=== PATIENT | male | born 1945 | race Caucasian/White ===

== ENCOUNTER 2018-02-18 10:39 | Inpatient (IN) | payer OTHER ==
[2018-02-18 11:04] VITALS: BMI 27.1
--- NOTE | 2018-02-18 11:06 | HP ---
CIWA Score - CIWA Score Nausea/Vomitin-No Nausea/No Vomiting Muscle Tremors: 3 Anxiety: 3 Agitation: 2 Paroxysmal Sweats: 3 Orientation: 3-Disoriented Date>2 days Tacttile Disturbances: 0-None Auditory Disturbances: 0-None Visual Disturbances: 0-None Headache: 0-None Present CIWA-Ar Total Score: 14 Admission ROS BHS - HPI Chief Complaint: "I need help to cut drinking" Allergies/Adverse Reactions: Allergies Allergy/AdvReac Type Severity Reaction Status Date / Time No Known Allergies Allergy Verified 02/18/18 11:02 History of Present Illness: 73 y/o male presents requesting alcohol detox. This is pt's first visit here, states he had detox about 6 months ago @ [facility]. Pt is a MMTP at [facility] where he says he takes 45mg daily, he got his dose for today (presents empty bottles for his sat and sun doses). Explained that he will be medicated tomorrow after verification has been done, pt verbalized understanding. Pt was @ [facility] yesterday where he was seen for abdominal pain and alcohol -related incidence. Pt has a hx of Hep C , ?HTN (says he was given a small pill before, does not remember the name - explained to pt that we will monitor Bp and treat accordingly), Admits to being depressed (not diagnosed). Denies past or current SI/HI. Exam Limitations: No Limitations - Ebola screening Have you traveled outside of the country in the last 21 days: No Have you had contact with anyone from an Ebola affected area: No Have you been sick,other than usual withdrawal symptoms: No Do you have a fever: No - Review of Systems Constitutional: Loss of Appetite, Night Sweats, Unintentional Wgt. Loss EENT: reports: Blurred Vision, Dental Problems (missing teeth, has upper dentures) Respiratory: reports: No Symptoms reported Cardiac: reports: No Symptoms Reported GI: reports: Other (LUQ pain, was told he has fatty liver and air pockets) : reports: No Symptoms Reported Musculoskeletal: reports: Joint Pain (elbows, knees) Integumentary: reports: Flushing Neuro: reports: Numbness, Paresthesia Endocrine: reports: No Symptoms Reported Hematology: reports: No Symptoms Reported Psychiatric: reports: Mood/Affect Appropiate, Depressed (Not on meds), Disorientated (to time) Other Systems: Reviewed and Negative Patient History - Patient Medical History Hx Anemia: No Hx Asthma: No Hx Chronic Obstructive Pulmonary Disease (COPD): No Hx Cancer: No Hx Cardiac Disorders: No Hx Congestive Heart Failure: No Hx Hypertension: Yes (Not on Meds. ?Borderline ) Hx Hypercholesterolemia: No Hx Pacemaker: No HX Cerebrovascular Accident: No Hx Seizures: No Hx Dementia: No Hx Diabetes: No Hx Gastrointestinal Disorders: No Hx Liver Disease: Yes (Hep C) Hx Genitourinary Disorders: No Hx Sexually Transmitted Disorders: No Hx Renal Disease (ESRD): No Hx Thyroid Disease: No Hx Human Immunodeficiency Virus (HIV): No (Last tested Mar 2017. Wants test now) Hx Hepatitis C: Yes (Not treated) Hx Depression: No Hx Suicide Attempt: No Hx Bipolar Disorder: No Hx Schizophrenia: No - Patient Surgical History Past Surgical History: Yes Hx Abdominal Surgery: Yes (Inguinal and Abdominal - unsure what dates) Hx Appendectomy: No Hx Cholecystectomy: No Hx Genitourinary Surgery: No Hx Section: No Hx Orthopedic Surgery: No Hx Hysterectomy: No Anesthesia Reaction: No - PPD History Implanted On Prior R Admission?: No PPD to be Administered?: Yes - Smoking Cessation Smoking history: Former smoker Have you smoked in the past 12 months: No Initiated information on smoking cessation: Yes 'Breaking Loose' booklet given: 02/18/18 - Substance & Tx. History Hx Alcohol Use: Yes Hx Substance Use Treatment: Yes - Substances Abused Alcohol Route: Oral Frequency: Daily Amount used: 2 pints Age of first use: 25 Date of Last Use: 02/18/18 Family Disease History - Family Disease History Family Disease History: Diabetes: Mother (), Other: Father () Admission Physical Exam S - Physical General Appearance: Yes: Mild Distress, Anxious HEENTM: Yes: Within Normal Limits Respiratory: Yes: Lungs Clear, Normal Breath Sounds, No Respiratory Distress, No Accessory Muscle Use Neck: Yes: No masses,lesions,Nodules, Trachea in good position Breast: Yes: Breast Exam Deferred Cardiology: Yes: Regular Rate Abdominal: Yes: Non Tender, Distended Genitourinary: Yes: Within Normal Limits Back: Yes: Normal Inspection Musculoskeletal: Yes: full range of Motion, Gait Steady Extremities: Yes: Within Normal Limits, Normal Capillary Refill, Normal Inspection, Normal Range of Motion Neurological: Yes: Alert, Motor Strength 5/5, Normal Mood/Affect, Normal Response Integumentary: Yes: Normal Color, Dry, Warm Lymphatic: Yes: Within Normal Limits - Diagnostic (1) Alcohol dependence, uncomplicated Status: Acute (2) Hx of hepatitis C Status: Chronic (3) Sad mood Status: Chronic (4) Opioid dependence on agonist therapy Status: Chronic Cleared for Admission S - Detox or Rehab [facility] Level of Care: Medically Managed Detox Regimen/Protocol: Librium
[2018-02-18] MEDS ORDERED: MAGNESIUM CITRATE 300 ML BOTTLE PO PRN (11:38)
[2018-02-18] MEDS ORDERED: MENTHOL/PHENOL 1 EACH UD MM PRN (11:38)
[2018-02-18] MEDS ORDERED: ACETAMINOPHEN 325 MG TABLET (FP) PO PRN (11:38)
[2018-02-18] MEDS ORDERED: chlordiazePOXIDE HCL 25 MG CAPSULE PO PRN (11:38)
[2018-02-18] MEDS ORDERED: MAG HYDROX/AL HYDROX/SIMETH 30 ML UNIT-DOSE CUP PO PRN (11:38)
[2018-02-18] MEDS ORDERED: LOPERAMIDE HCL 2 MG CAPSULE PO PRN (11:38)
[2018-02-18] MEDS ORDERED: P-EPHED 60MG/TRIPROLIDI 2.5MG TABLET PO PRN (11:38)
[2018-02-18] MEDS ORDERED: guaiFENesin/D-METHORPHAN HB 10 ML UNIT-DOSE CUPS PO PRN (11:38)
[2018-02-18] MEDS ORDERED: MAGNESIUM HYDROX 2400MG/30ML ORAL SUSPENSION 30 ML CUP PO PRN (11:38)
[2018-02-18] MEDS: chlordiazePOXIDE HCL 25 MG CAPSULE PO SCH ×2 (17:49→23:08)
[2018-02-18 17:50] LABS: URINE APPEARANCE CLEAR; URINE BILIRUBIN NEGATIVE (<2.0 mg/dL); URINE COLOR LTYELLOW; URINE GLUCOSE (UA) NEGATIVE (NEGATIVE); URINE KETONE NEGATIVE (NEGATIVE); URINE LEUK ESTERASE NEGATIVE (NEGATIVE); URINE NITRITE NEGATIVE (NEGATIVE); URINE PROTEIN NEGATIVE (NEGATIVE)
[2018-02-18] MEDS ORDERED: MELATONIN 5 MG TABLETS PO PRN (22:00)
[2018-02-18] MEDS: THIAMINE HCL 100 MG TABLET (FP) PO SCH (23:08)
[2018-02-19] MEDS: chlordiazePOXIDE HCL 25 MG CAPSULE PO SCH ×4 (06:36→22:42)
[2018-02-19] MEDS: IBUPROFEN 400 MG TABLET (FP) PO PRN (06:37)
--- NOTE | 2018-02-19 08:47 | CONSULT ---
[facility] Psychiatric Consult - Data Date of interview: 02/19/18 Admission source: [facility] Identifying data: This is a 73 years old male, single father of three, living with family, on SSI, with history of Alcohol and Opioids dependence.presents here requesting alcohol detox. Patient reports no psychiatric hospitalization history, denies suicdial and homicidal ideation. Substance Abuse History: - Smoking Cessation. Smoking history: Former smoker. Have you smoked in the past 12 months: No. Substances Abused. Alcohol. Route: Oral. Frequency: Daily. Amount used: 2 pints. Age of first use: 25. Date of Last Use: 02/18/18. Methdaone at [facility] Medical History: HepC+, Pt is a a [facility] member at [facility] where he takes 45mg daily, Psychiatric History: Denies past psychiatric hospitalization history. Reports depression ad nanxiety, denies suicdial ideation history, denies taking psychiatric medications prior to admission.Denies suicidal and hospicidal history. Physical/Sexual Abuse/Trauma History: Denies Additional Comment: Observation. Detox Unit Care Protocol. Mental Status Exam - Mental Status Exam Alert and Oriented to: Person Cognitive Function: Fair Patient Appearance: Unkempt Mood: Sad Affect: Flat Patient Behavior: Sedated Speech Pattern: Delayed Voice Loudness: Mildly Soft/Quiet Thought Process: Circumstantial Thought Disorder: Being Controlled Hallucinations: Denies Suicidal Ideation: Denies Homicidal Ideation: Denies Insight/Judgement: Fair Sleep: Difficulty falling asleep Appetite: Weight loss Muscle strength/Tone: Mild Hypotonicity Gait/Station: Shuffling Additional Comments: Observation. Detox Unit Care Protocol. Psychiatric Findings - Problem List ([place] 1, 2,3) (1) Drug-induced mood disorder Current Visit: Yes Status: Acute (2) Alcohol dependence, uncomplicated Current Visit: Yes Status: Acute (3) Hx of hepatitis C Current Visit: Yes Status: Chronic (4) Opioid dependence on agonist therapy Current Visit: Yes Status: Chronic - Initial Treatment Plan Initial Treatment Plan: Observation. MMTP 45MG PER DAY
[2018-02-19] MEDS ORDERED: METHADONE HCL 5 MG TABLET ONE (09:42)
[2018-02-19] MEDS ORDERED: METHADONE HCL 40 MG DISPERSABLE TABLET ONE (09:42)
[2018-02-19] MEDS ORDERED: METHADONE HCL 10 MG TABLET PO ONE (10:00)
[2018-02-19] MEDS ORDERED: METHADONE 40 MG, METHADONE 5 MG PO ONE (10:00)
[2018-02-19] MEDS: PRENATAL VITAMINS W/ FOLIC ACID TABLET (FP) PO SCH (10:40)
[2018-02-19 11:12] LABS: HEMATOCRIT 40.3 % (35.4-49); HEMOGLOBIN 13.1 GM/dL (11.7-16.9); MCH 31.4 pg (25.7-33.7); MCHC 32.5 g/dl (32.0-35.9); MEAN CELL VOLUME 96.5 fl (80-96); MEAN PLT VOLUME 8.4 fl (7.5-11.1); PLATELET COUNT 63 K/MM3 (134-434); RBC 4.17 M/mm3 (4.00-5.60); RDW 17.2 % (11.9-15.9); WHITE BLOOD COUNT 2.6 K/mm3 (4.0-10.0)
[2018-02-19 11:27] LABS: ALBUMIN 3.8 g/dl (3.4-5.0); ALK PHOS 98 U/L (45-117); ANION GAP 9 MMOL/L (8-16); BILIRUBIN,TOTAL 1.5 mg/dL (0.2-1); BLOOD UREA NITROGEN 13 mg/dL (7-18); CALCIUM 8.5 mg/dL (8.5-10.1); CHLORIDE 98 mmol/L (98-107); CO2 32 mmol/L (21-32); CREATININE 0.7 mg/dL (0.55-1.3); GLUCOSE,RANDOM 101 mg/dL (74-106); POTASSIUM 3.3 mmol/L (3.5-5.1); SGOT/AST 124 U/L (15-37); SGPT/ALT 110 U/L (13-61); SODIUM 139 mmol/L (136-145); TOT PROT 7.5 g/dl (6.4-8.2)
[2018-02-19] MEDS ORDERED: PNEUMOC 13-VAL CONJ-DIP CRM/PF 0.5 ML DISP.SYRIN IM ONE (12:00)
[2018-02-19] MEDS ORDERED: FLU VACCINE QUAD 60 MCG/0.5 ML (MDV 18-19) IM ONE (12:00)
--- NOTE | 2018-02-19 12:56 | PN ---
S CIWA - CIWA Score Nausea/Vomitin-No Nausea/No Vomiting Muscle Tremors: 3 Anxiety: 2 Agitation: 2 Paroxysmal Sweats: 1-Minimal Palms Moist Orientation: 1-Uncertain about Date Tacttile Disturbances: 1-Very Mild Itch/Numbness Auditory Disturbances: 0-None Visual Disturbances: 0-None Headache: 1-Very Mild CIWA-Ar Total Score: 11 BHS Progress Note (SOAP) Subjective: sweat tremor anxiety restlessness irritable Objective: 02/19/18 12:53 Vital Signs Temperature 99.1 F 02/19/18 09:28 Pulse Rate 105 H 02/19/18 09:28 Respiratory Rate 20 02/19/18 09:28 Blood Pressure 137/76 02/19/18 09:28 O2 Sat by Pulse Oximetry (%) Laboratory Last Values WBC 2.6 K/mm3 (4.0-10.0) L 02/19/18 07:20 RBC 4.17 M/mm3 (4.00-5.60) 02/19/18 07:20 Hgb 13.1 GM/dL (11.7-16.9) 02/19/18 07:20 Hct 40.3 % (35.4-49) 02/19/18 07:20 MCV 96.5 fl (80-96) H 02/19/18 07:20 MCH 31.4 pg (25.7-33.7) 02/19/18 07:20 MCHC 32.5 g/dl (32.0-35.9) 02/19/18 07:20 RDW 17.2 % (11.9-15.9) H 02/19/18 07:20 Plt Count 63 K/MM3 (134-434) L 02/19/18 07:20 MPV 8.4 fl (7.5-11.1) 02/19/18 07:20 Sodium 139 mmol/L (136-145) 02/19/18 07:20 Potassium 3.3 mmol/L (3.5-5.1) L 02/19/18 07:20 Chloride 98 mmol/L (98-107) 02/19/18 07:20 Carbon Dioxide 32 mmol/L (21-32) 02/19/18 07:20 Anion Gap 9 MMOL/L (8-16) 02/19/18 07:20 BUN 13 mg/dL (7-18) 02/19/18 07:20 Creatinine 0.7 mg/dL (0.55-1.3) 02/19/18 07:20 Creat Clearance w eGFR > 60 (>60) 02/19/18 07:20 Random Glucose 101 mg/dL (74-106) 02/19/18 07:20 Calcium 8.5 mg/dL (8.5-10.1) 02/19/18 07:20 Total Bilirubin 1.5 mg/dL (0.2-1) H 02/19/18 07:20 AST 124 U/L (15-37) H 02/19/18 07:20 ALT 110 U/L (13-61) H 02/19/18 07:20 Alkaline Phosphatase 98 U/L (45-117) 02/19/18 07:20 Total Protein 7.5 g/dl (6.4-8.2) 02/19/18 07:20 Albumin 3.8 g/dl (3.4-5.0) 02/19/18 07:20 Urine Color Ltyellow 02/18/18 14:38 Urine Appearance Clear 02/18/18 14:38 Urine pH 6.0 (5.0-8.0) 02/18/18 14:38 Ur Specific [place] 1.012 (1.010-1.035) 02/18/18 14:38 Urine Protein Negative (NEGATIVE) 02/18/18 14:38 Urine Glucose (UA) Negative (NEGATIVE) 02/18/18 14:38 Urine Ketones Negative (NEGATIVE) 02/18/18 14:38 Urine Blood Negative (NEGATIVE) 02/18/18 14:38 Urine Nitrite Negative (NEGATIVE) 02/18/18 14:38 Urine Bilirubin Negative (<2.0 mg/dL) 02/18/18 14:38 Urine Urobilinogen 2.0 mg/dL (0.2-1.0) 02/18/18 14:38 Ur Leukocyte Esterase Negative (NEGATIVE) 02/18/18 14:38 RPR Titer Nonreactive (NONREACTIVE) 02/19/18 07:20 lab noted K+ supplement Assessment: 02/19/18 12:55 withdrawal sx low K+ Plan: continue detox K+ supplement repeat K+
[2018-02-19] MEDS ORDERED: PNEUMOCOCCAL 23 VACCINE 0.5 ML VIAL IM ONE (14:00)
[2018-02-19] MEDS: POTASSIUM CHLORIDE TABS 20 MEQ TABLET.ER (FP) PO SCH ×2 (15:14→22:42)
--- NOTE | 2018-02-19 21:33 | EKG ---
Test Reason : Blood Pressure : / mmHG Vent. Rate : 091 BPM Atrial Rate : 091 BPM P-R Int : 172 ms QRS Dur : 090 ms QT Int : 388 ms P-R-T Axes : 046 -27 046 degrees QTc Int : 477 ms NORMAL SINUS RHYTHM MINIMAL VOLTAGE CRITERIA FOR LVH, MAY BE NORMAL VARIANT BORDERLINE ECG NO PREVIOUS ECGS AVAILABLE Confirmed by KAZ KELLEY MD ([id number]) on 02/19/2018 9:32:54 PM Referred By: Rula Crockett Confirmed By:KAZ KELLEY MD
[2018-02-19] MEDS: THIAMINE HCL 100 MG TABLET (FP) PO SCH (22:42)
[2018-02-20] MEDS: chlordiazePOXIDE HCL 25 MG CAPSULE PO SCH ×2 (05:31→10:24)
[2018-02-20] MEDS ORDERED: METHADONE HCL 5 MG TABLET ONE (05:32)
[2018-02-20] MEDS: METHADONE 40 MG, METHADONE 5 MG PO SCH (05:32)
[2018-02-20] MEDS ORDERED: METHADONE HCL 40 MG DISPERSABLE TABLET ONE (05:32)
[2018-02-20] MEDS ORDERED: METHADONE HCL 10 MG TABLET PO SCH (06:00)
[2018-02-20] MEDS ORDERED: cloNIDine HCL 0.1 MG TABLET PO ONE (06:22)
--- NOTE | 2018-02-20 06:25 | PN ---
BHS Progress Note Note: Patient's blood pressure this AM is B/P 175/93. Patient is asymptomatic Vital Signs Temperature 97.7 F 02/20/18 06:21 Pulse Rate 69 02/20/18 06:21 Respiratory Rate 18 02/20/18 06:21 Blood Pressure 175/93 H 02/20/18 06:21 O2 Sat by Pulse Oximetry (%) Action: Clonidine 0.1mg tablet oral ordered
[2018-02-20] MEDS: PRENATAL VITAMINS W/ FOLIC ACID TABLET (FP) PO SCH (10:25)
[2018-02-20] MEDS: POTASSIUM CHLORIDE TABS 20 MEQ TABLET.ER (FP) PO SCH ×2 (10:30→23:26)
--- NOTE | 2018-02-20 12:26 | PN ---
S CIWA - CIWA Score Nausea/Vomitin-No Nausea/No Vomiting Muscle Tremors: 2 Anxiety: 2 Agitation: 1-Slight > Activity Paroxysmal Sweats: 2 Orientation: 3-Disoriented Date>2 days Tacttile Disturbances: 0-None Auditory Disturbances: 0-None Visual Disturbances: 0-None Headache: 0-None Present CIWA-Ar Total Score: 10 BHS Progress Note (SOAP) Subjective: PATIENT C/O SWEATING, ANXIETY AND SHAKES. Objective: 02/20/18 12:25 Laboratory Tests 02/18/18 02/19/18 02/19/18 14:38 07:20 07:20 WBC 2.6 L RBC 4.17 Hgb 13.1 Hct 40.3 MCV 96.5 H MCH 31.4 MCHC 32.5 RDW 17.2 H Plt Count 63 L MPV 8.4 Sodium 139 Potassium 3.3 L Chloride 98 Carbon Dioxide 32 Anion Gap 9 BUN 13 Creatinine 0.7 Creat Clearance w eGFR > 60 Random Glucose 101 Calcium 8.5 Total Bilirubin 1.5 H AST 124 H ALT 110 H Alkaline Phosphatase 98 Total Protein 7.5 Albumin 3.8 Urine Color Ltyellow Urine Appearance Clear Urine pH 6.0 Ur Specific [place] 1.012 Urine Protein Negative Urine Glucose (UA) Negative Urine Ketones Negative Urine Blood Negative Urine Nitrite Negative Urine Bilirubin Negative Urine Urobilinogen 2.0 Ur Leukocyte Esterase Negative RPR Titer 02/19/18 07:20 WBC RBC Hgb Hct MCV MCH MCHC RDW Plt Count MPV Sodium Potassium Chloride Carbon Dioxide Anion Gap BUN Creatinine Creat Clearance w eGFR Random Glucose Calcium Total Bilirubin AST ALT Alkaline Phosphatase Total Protein Albumin Urine Color Urine Appearance Urine pH Ur Specific [place] Urine Protein Urine Glucose (UA) Urine Ketones Urine Blood Urine Nitrite Urine Bilirubin Urine Urobilinogen Ur Leukocyte Esterase RPR Titer Nonreactive SKIN WARM AND MOIST CAR S1S2 RESP CTA BL EXT +MILD TREMORS, FULL ROM ALERT AND ORIENTED X 3 Assessment: 02/20/18 12:26 WITHDRAWAL SX Plan: CONTINUE DETOX ORDERED ENCOURAGE ORAL FLUIDS CONTINUE TO MONITOR CLINICALLY
[2018-02-20] MEDS: IBUPROFEN 400 MG TABLET (FP) PO PRN (18:09)
[2018-02-20] MEDS: chlordiazePOXIDE 5 MG CAPSULE PO SCH ×2 (18:10→23:29)
[2018-02-20] MEDS: THIAMINE HCL 100 MG TABLET (FP) PO SCH (23:29)
[2018-02-21] MEDS ORDERED: METHADONE HCL 5 MG TABLET ONE (04:35)
[2018-02-21] MEDS ORDERED: METHADONE HCL 40 MG DISPERSABLE TABLET ONE (04:35)
[2018-02-21] MEDS: METHADONE 40 MG, METHADONE 5 MG PO SCH (06:22)
[2018-02-21] MEDS: chlordiazePOXIDE 5 MG CAPSULE PO SCH ×2 (06:22→10:48)
[2018-02-21] MEDS: PRENATAL VITAMINS W/ FOLIC ACID TABLET (FP) PO SCH (10:48)
[2018-02-21] MEDS: POTASSIUM CHLORIDE TABS 20 MEQ TABLET.ER (FP) PO SCH ×2 (10:48→22:01)
--- NOTE | 2018-02-21 11:57 | PN ---
BHS Progress Note (SOAP) Subjective: interrupted sleep, dizziness , sweats, headache Objective: 02/21/18 11:52 Vital Signs Temperature 97.7 F 02/21/18 09:28 Pulse Rate 117 H 02/21/18 09:28 Respiratory Rate 20 02/21/18 09:28 Blood Pressure 108/75 02/21/18 09:28 O2 Sat by Pulse Oximetry (%) Laboratory Tests 02/18/18 02/19/18 02/19/18 14:38 07:20 07:20 WBC 2.6 L RBC 4.17 Hgb 13.1 Hct 40.3 MCV 96.5 H MCH 31.4 MCHC 32.5 RDW 17.2 H Plt Count 63 L MPV 8.4 Sodium 139 Potassium 3.3 L Chloride 98 Carbon Dioxide 32 Anion Gap 9 BUN 13 Creatinine 0.7 Creat Clearance w eGFR > 60 Random Glucose 101 Calcium 8.5 Total Bilirubin 1.5 H AST 124 H ALT 110 H Alkaline Phosphatase 98 Total Protein 7.5 Albumin 3.8 Urine Color Ltyellow Urine Appearance Clear Urine pH 6.0 Ur Specific [place] 1.012 Urine Protein Negative Urine Glucose (UA) Negative Urine Ketones Negative Urine Blood Negative Urine Nitrite Negative Urine Bilirubin Negative Urine Urobilinogen 2.0 Ur Leukocyte Esterase Negative RPR Titer 02/19/18 07:20 WBC RBC Hgb Hct MCV MCH MCHC RDW Plt Count MPV Sodium Potassium Chloride Carbon Dioxide Anion Gap BUN Creatinine Creat Clearance w eGFR Random Glucose Calcium Total Bilirubin AST ALT Alkaline Phosphatase Total Protein Albumin Urine Color Urine Appearance Urine pH Ur Specific [place] Urine Protein Urine Glucose (UA) Urine Ketones Urine Blood Urine Nitrite Urine Bilirubin Urine Urobilinogen Ur Leukocyte Esterase RPR Titer Nonreactive pt lying in bed aox3 in nad eyes - perrl, eom intact neuro - intact no deficits Assessment: 02/21/18 11:54 withdrawal sx's elevated transaminases hypokalemia Plan: continue detox increase fluids d/c tylenol d/c in am
[2018-02-21] MEDS: IBUPROFEN 400 MG TABLET (FP) PO PRN (16:03)
[2018-02-21] MEDS: chlordiazePOXIDE HCL 10 MG CAPSULE PO SCH ×2 (17:55→22:01)
[2018-02-21] MEDS: THIAMINE HCL 100 MG TABLET (FP) PO SCH (22:01)
[2018-02-22] MEDS ORDERED: METHADONE HCL 5 MG TABLET ONE (05:07)
[2018-02-22] MEDS ORDERED: METHADONE HCL 40 MG DISPERSABLE TABLET ONE (05:07)
[2018-02-22] MEDS: METHADONE 40 MG, METHADONE 5 MG PO SCH (06:08)
[2018-02-22] MEDS: chlordiazePOXIDE HCL 10 MG CAPSULE PO SCH ×2 (06:08→10:27)
--- NOTE | 2018-02-22 09:27 | DS ---
[facility] Detox Discharge Summary Admission Date: 02/18/18 Discharge Date: 02/22/18 - History Present History: Alcohol Dependence Additional Comments: 73 years old male admitted on 02/18/18 for alcohol withdrawal sx completed detox regime tolerated well denies alcohol withdrawal sx alert oriented x 3 no acute distress after care [facility] - Physical Exam Results Vital Signs: Vital Signs Temperature 97.7 F 02/22/18 07:10 Pulse Rate 72 02/22/18 07:10 Respiratory Rate 18 02/22/18 07:10 Blood Pressure 149/89 02/22/18 07:10 O2 Sat by Pulse Oximetry (%) Pertinent Admission Physical Exam Findings: alcohol withdrawal sx Vital Signs Temperature 96.1 F L 02/22/18 09:42 Pulse Rate 107 H 02/22/18 09:42 Respiratory Rate 18 02/22/18 09:42 Blood Pressure 132/96 02/22/18 09:42 O2 Sat by Pulse Oximetry (%) Laboratory Last Values WBC 2.6 K/mm3 (4.0-10.0) L 02/19/18 07:20 RBC 4.17 M/mm3 (4.00-5.60) 02/19/18 07:20 Hgb 13.1 GM/dL (11.7-16.9) 02/19/18 07:20 Hct 40.3 % (35.4-49) 02/19/18 07:20 MCV 96.5 fl (80-96) H 02/19/18 07:20 MCH 31.4 pg (25.7-33.7) 02/19/18 07:20 MCHC 32.5 g/dl (32.0-35.9) 02/19/18 07:20 RDW 17.2 % (11.9-15.9) H 02/19/18 07:20 Plt Count 63 K/MM3 (134-434) L 02/19/18 07:20 MPV 8.4 fl (7.5-11.1) 02/19/18 07:20 Sodium 139 mmol/L (136-145) 02/19/18 07:20 Potassium 4.3 mmol/L (3.5-5.1) 02/21/18 07:00 Chloride 98 mmol/L (98-107) 02/19/18 07:20 Carbon Dioxide 32 mmol/L (21-32) 02/19/18 07:20 Anion Gap 9 MMOL/L (8-16) 02/19/18 07:20 BUN 13 mg/dL (7-18) 02/19/18 07:20 Creatinine 0.7 mg/dL (0.55-1.3) 02/19/18 07:20 Creat Clearance w eGFR > 60 (>60) 02/19/18 07:20 Random Glucose 101 mg/dL (74-106) 02/19/18 07:20 Calcium 8.5 mg/dL (8.5-10.1) 02/19/18 07:20 Total Bilirubin 1.5 mg/dL (0.2-1) H 02/19/18 07:20 AST 124 U/L (15-37) H 02/19/18 07:20 ALT 110 U/L (13-61) H 02/19/18 07:20 Alkaline Phosphatase 98 U/L (45-117) 02/19/18 07:20 Total Protein 7.5 g/dl (6.4-8.2) 02/19/18 07:20 Albumin 3.8 g/dl (3.4-5.0) 02/19/18 07:20 Urine Color Ltyellow 02/18/18 14:38 Urine Appearance Clear 02/18/18 14:38 Urine pH 6.0 (5.0-8.0) 02/18/18 14:38 Ur Specific [place] 1.012 (1.010-1.035) 02/18/18 14:38 Urine Protein Negative (NEGATIVE) 02/18/18 14:38 Urine Glucose (UA) Negative (NEGATIVE) 02/18/18 14:38 Urine Ketones Negative (NEGATIVE) 02/18/18 14:38 Urine Blood Negative (NEGATIVE) 02/18/18 14:38 Urine Nitrite Negative (NEGATIVE) 02/18/18 14:38 Urine Bilirubin Negative (<2.0 mg/dL) 02/18/18 14:38 Urine Urobilinogen 2.0 mg/dL (0.2-1.0) 02/18/18 14:38 Ur Leukocyte Esterase Negative (NEGATIVE) 02/18/18 14:38 RPR Titer Nonreactive (NONREACTIVE) 02/19/18 07:20 lab noted patient agrees to return to methadone maintenance program follow up with cbc repeat - Treatment Hospital Course: Detox Protocol Followed, Detoxed Safely, Responded well, Discharged Condition Good, Rehab Referral Accepted Patient has Accepted a Rehab Referral to: [facility] - Medication Discharge Medications: Ambulatory Orders Methadone [Dolophine -] 45 mg PO DAILY 02/18/18 - Diagnosis (1) Methadone maintenance therapy patient Current Visit: Yes Status: Chronic (2) Drug-induced mood disorder Current Visit: Yes Status: Suspected (3) Alcohol dependence, uncomplicated Current Visit: Yes Status: Acute (4) Hx of hepatitis C Current Visit: Yes Status: Chronic - AMA Did Patient Leave Against Medical Advice: No
[2018-02-22] MEDS: PRENATAL VITAMINS W/ FOLIC ACID TABLET (FP) PO SCH (10:27)
[2018-02-22] MEDS: POTASSIUM CHLORIDE TABS 20 MEQ TABLET.ER (FP) PO SCH (10:27)
[2018-02-22 13:25] VITALS: BP 121/58; PULSE 100; TEMP 98.2
== END 2018-02-22 19:03 | disposition other institution (70) | DRG 897 ==
LOC: YASAS 10:39 → Y6N 12:03
PROC: HZ2ZZZZ Detoxification Services for Substance Abuse Treatment (ICD-10-PCS; principal; 2018-02-18)
DX: F10.230 Alcohol dependence with withdrawal, uncomplicated (principal); F11.20 Opioid dependence, uncomplicated; F19.24 Other psychoactive substance dependence with psychoactive substance-induced mood disorder; F39 Unspecified mood [affective] disorder; B18.2 Chronic viral hepatitis C; R74.0 Nonspecific elevation of levels of transaminase and lactic acid dehydrogenase [LDH]; E87.6 Hypokalemia; Z87.891 Personal history of nicotine dependence
CPT/HCPCS: 36415; 80053; 81003; 84132; 85027; 86593; 90688; 90732; 93005; 93010; G0008; G0009; J0735

== ENCOUNTER 2018-02-22 17:39 | Inpatient (IN) | payer OTHER ==
[2018-02-22] MEDS ORDERED: MAGNESIUM HYDROX 2400MG/30ML ORAL SUSPENSION 30 ML CUP PO PRN (21:13)
[2018-02-22] MEDS ORDERED: MAG HYDROX/AL HYDROX/SIMETH 30 ML UNIT-DOSE CUP PO PRN (21:13)
[2018-02-22] MEDS ORDERED: LOPERAMIDE HCL 2 MG CAPSULE PO PRN (21:13)
[2018-02-22] MEDS ORDERED: guaiFENesin/D-METHORPHAN HB 10 ML UNIT-DOSE CUPS PO PRN (21:13)
[2018-02-22] MEDS ORDERED: MAGNESIUM CITRATE 300 ML BOTTLE PO PRN (21:13)
[2018-02-22] MEDS ORDERED: ACETAMINOPHEN 325 MG TABLET (FP) PO PRN (21:13)
[2018-02-22] MEDS ORDERED: P-EPHED 60MG/TRIPROLIDI 2.5MG TABLET PO PRN (21:13)
[2018-02-22] MEDS ORDERED: MENTHOL/PHENOL 1 EACH UD MM PRN (21:13)
--- NOTE | 2018-02-22 21:13 | HP ---
[facility] Rehab Assess/Revision - Admission History Admitted to Rehab from: [facility] [place] Date of Admission to Rehab: 02/22/18 - Vital signs Vital Signs: Vital Signs Period Temp Pulse Resp BP Sys/Corley Pulse Ox Last 24 Hr 97.8 F 110 18 153/88 - Findings Detox History & Physical reviewed: Yes Concur with findings: Yes Inpatient Rehab Admission - Initial Determination Are CD services needed?: Yes Free of communicable disease: Yes Not in need of hospitalization: Yes - Rehab Admission Criteria Previous failed treatment: Yes Poor recovery environment: Yes Comorbidities: Yes Lacks judgement: Yes Patient is meeting Inpatient Rehab admission criteria:: Yes
[2018-02-22] MEDS: THIAMINE HCL 100 MG TABLET (FP) PO SCH (21:35)
[2018-02-22] MEDS: MELATONIN 5 MG TABLETS PO PRN (21:35)
[2018-02-23] MEDS ORDERED: METHADONE HCL 5 MG TABLET ONE (05:46)
[2018-02-23] MEDS ORDERED: METHADONE HCL 40 MG DISPERSABLE TABLET ONE (05:46)
[2018-02-23] MEDS ORDERED: METHADONE HCL 10 MG TABLET PO SCH (06:00)
[2018-02-23] MEDS: METHADONE 40 MG, METHADONE 5 MG PO SCH (06:13)
[2018-02-23] MEDS: PRENATAL VITAMINS W/ FOLIC ACID TABLET (FP) PO SCH (10:08)
--- NOTE | 2018-02-23 13:23 | HP ---
Psychiatrist Admission - Data Date of interview: 02/23/18 Admission source: 6N Identifying data: This is the first [facility] admission for this 73 years old single male, father of 3 children, unemployed on Social security, homeless Medical History: Significant for hypertension, hepatitis C and history of surgery for abdominal left inguinal hernia repair. Patient is on methadone 45 mg /day. Psychiatric History: Denies history of previous psychiatric treatment. However, reports that he was prescribed Trazadone for sleep by doctor at methadone program. Pharmacy search shows script for Trazadone 30 mg#30 filled on 06/04/17 from [facility] Physical/Sexual Abuse/Trauma History: Denies history of emotional, physical or sexual abuseas well as DV relationship Additional Comment: Denies criminal history. 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 Vital Signs: Vital Signs - 24 hr 02/22/18 02/23/18 02/23/18 18:26 00:30 03:30 Temperature 97.8 F Pulse Rate 110 H Respiratory 18 19 18 Rate Blood Pressure 153/88 02/23/18 07:01 Temperature 98.6 F Pulse Rate 83 Respiratory 18 Rate Blood Pressure 145/76 Allergies/Adverse Reactions: Allergies Allergy/AdvReac Type Severity Reaction Status Date / Time No Known Allergies Allergy Verified 02/18/18 11:02 Date of last physical exam: 02/18/18 Concur with the findings of this exam: Yes - Substance Abuse/Tx History Hx Alcohol Use: Yes Hx Substance Use: No Substance Use Type: Alcohol (Started drinking alcohol at age 25, consumes 2 pints of liquor daily. Last drank on 02/18/18) Hx Substance Use Treatment: Yes (4 previous inpt detoxadmisions. first inpt rehab) Mental Status Exam - Mental Status Exam Alert and Oriented to: Time, Place, Person Cognitive Function: Fair Patient Appearance: Well Groomed Mood: Hopeful, Euthymic Affect: Appropriate Patient Behavior: Cooperative Speech Pattern: Clear Voice Loudness: Normal Thought Process: Intact, Goal Oriented Thought Disorder: Not Present Hallucinations: Denies Suicidal Ideation: Denies Homicidal Ideation: Denies Insight/Judgement: Fair Sleep: Poorly Appetite: Good Muscle strength/Tone: Normal Gait/Station: Normal Psychiatric Findings - Problem List ([place] 1, 2,3) (1) Alcohol dependence Current Visit: Yes Status: Acute (2) Opioid dependence on agonist therapy Current Visit: No Status: Chronic (3) Alcohol-induced sleep disorder Current Visit: Yes Status: Acute (4) Hx of hepatitis C Current Visit: No Status: Chronic (5) HTN (hypertension) Current Visit: Yes Status: Chronic - Initial Treatment Plan Initial Treatment Plan: 1) Start Trazadone 50 mg po Hs. 2) monitor progress
[2018-02-23] MEDS: traZODone HCL 50 MG TABLET (FP) PO SCH (21:28)
[2018-02-23] MEDS: THIAMINE HCL 100 MG TABLET (FP) PO SCH (21:28)
[2018-02-24] MEDS ORDERED: METHADONE HCL 5 MG TABLET ONE (04:00)
[2018-02-24] MEDS ORDERED: METHADONE HCL 40 MG DISPERSABLE TABLET ONE (04:00)
[2018-02-24] MEDS: METHADONE 40 MG, METHADONE 5 MG PO SCH (06:37)
[2018-02-24] MEDS: PRENATAL VITAMINS W/ FOLIC ACID TABLET (FP) PO SCH (10:12)
[2018-02-24] MEDS: MELATONIN 5 MG TABLETS PO PRN (21:23)
[2018-02-24] MEDS: THIAMINE HCL 100 MG TABLET (FP) PO SCH (21:23)
[2018-02-24] MEDS: traZODone HCL 50 MG TABLET (FP) PO SCH (21:23)
[2018-02-25] MEDS ORDERED: METHADONE HCL 40 MG DISPERSABLE TABLET ONE (04:02)
[2018-02-25] MEDS ORDERED: METHADONE HCL 5 MG TABLET ONE (04:02)
[2018-02-25] MEDS: METHADONE 40 MG, METHADONE 5 MG PO SCH (06:19)
[2018-02-25] MEDS: PRENATAL VITAMINS W/ FOLIC ACID TABLET (FP) PO SCH (09:45)
[2018-02-25] MEDS: traZODone HCL 50 MG TABLET (FP) PO SCH (21:46)
[2018-02-25] MEDS: THIAMINE HCL 100 MG TABLET (FP) PO SCH (21:46)
[2018-02-26] MEDS ORDERED: METHADONE HCL 40 MG DISPERSABLE TABLET ONE (03:23)
[2018-02-26] MEDS ORDERED: METHADONE HCL 5 MG TABLET ONE (03:23)
[2018-02-26] MEDS: METHADONE 40 MG, METHADONE 5 MG PO SCH (06:42)
[2018-02-26] MEDS: PRENATAL VITAMINS W/ FOLIC ACID TABLET (FP) PO SCH (10:33)
--- NOTE | 2018-02-26 10:40 | PN ---
S Progress Note Note: Patient complains of difficulty to sleep. Currently he is on Trazadone 50 mg po HS and Melatonin 5 mg po HS prn for insomnia. Will increase Trazadone dosage to 100 mg po HS
--- NOTE | 2018-02-26 12:11 | PN ---
BHS Progress Note Note: PT C/O ITCHY WATERY EYES X 2 WEEKS. DENIES REDNESS OR PUS. Vital Signs - 24 hr 02/26/18 02/26/18 03:30 07:05 Temperature 98.1 F Pulse Rate 82 Respiratory 18 18 Rate Blood Pressure 143/90 EYES:NO CONJUCTIVAL REDNESS OR EXUDATES. EOMIs INTACT PERRLA PLAN:VISINE A DIRECTED.
[2018-02-26] MEDS: NAPHAZOLINE/PHENIRAMINE OPHTHALMIC 15 ML BOTTLE OU SCH ×2 (14:28→21:37)
[2018-02-26] MEDS: THIAMINE HCL 100 MG TABLET (FP) PO SCH (21:37)
[2018-02-26] MEDS: traZODone HCL 100 MG TABLET (FP) PO SCH (21:39)
[2018-02-26] MEDS: MELATONIN 5 MG TABLETS PO PRN (21:40)
[2018-02-27] MEDS ORDERED: METHADONE HCL 5 MG TABLET ONE (06:42)
[2018-02-27] MEDS: METHADONE 40 MG, METHADONE 5 MG PO SCH (06:43)
[2018-02-27] MEDS ORDERED: METHADONE HCL 40 MG DISPERSABLE TABLET ONE (06:43)
[2018-02-27] MEDS: NAPHAZOLINE/PHENIRAMINE OPHTHALMIC 15 ML BOTTLE OU SCH ×3 (06:45→21:32)
[2018-02-27] MEDS: PRENATAL VITAMINS W/ FOLIC ACID TABLET (FP) PO SCH (10:31)
[2018-02-27] MEDS: traZODone HCL 100 MG TABLET (FP) PO SCH (21:32)
[2018-02-27] MEDS: THIAMINE HCL 100 MG TABLET (FP) PO SCH (21:32)
[2018-02-27] MEDS: MELATONIN 5 MG TABLETS PO PRN (21:33)
[2018-02-28] MEDS ORDERED: METHADONE HCL 5 MG TABLET ONE (04:01)
[2018-02-28] MEDS ORDERED: METHADONE HCL 40 MG DISPERSABLE TABLET ONE (04:02)
[2018-02-28] MEDS: METHADONE 40 MG, METHADONE 5 MG PO SCH (06:38)
[2018-02-28] MEDS: NAPHAZOLINE/PHENIRAMINE OPHTHALMIC 15 ML BOTTLE OU SCH ×3 (06:40→21:37)
[2018-02-28] MEDS: PRENATAL VITAMINS W/ FOLIC ACID TABLET (FP) PO SCH (10:17)
[2018-02-28] MEDS: traZODone HCL 100 MG TABLET (FP) PO SCH (21:37)
[2018-02-28] MEDS: MELATONIN 5 MG TABLETS PO PRN (21:37)
[2018-02-28] MEDS: THIAMINE HCL 100 MG TABLET (FP) PO SCH (21:37)
[2018-03-01] MEDS ORDERED: METHADONE HCL 5 MG TABLET ONE (04:01)
[2018-03-01] MEDS ORDERED: METHADONE HCL 40 MG DISPERSABLE TABLET ONE (04:01)
[2018-03-01] MEDS: METHADONE 40 MG, METHADONE 5 MG PO SCH (06:15)
[2018-03-01] MEDS: NAPHAZOLINE/PHENIRAMINE OPHTHALMIC 15 ML BOTTLE OU SCH ×3 (06:17→21:34)
[2018-03-01] MEDS: PRENATAL VITAMINS W/ FOLIC ACID TABLET (FP) PO SCH (10:13)
[2018-03-01] MEDS: traZODone HCL 100 MG TABLET (FP) PO SCH (21:33)
[2018-03-01] MEDS: THIAMINE HCL 100 MG TABLET (FP) PO SCH (21:34)
[2018-03-01] MEDS: MELATONIN 5 MG TABLETS PO PRN (21:34)
[2018-03-02] MEDS ORDERED: METHADONE HCL 10 MG TABLET PO SCH (06:00)
[2018-03-02] MEDS: NAPHAZOLINE/PHENIRAMINE OPHTHALMIC 15 ML BOTTLE OU SCH ×3 (06:34→21:24)
[2018-03-02] MEDS ORDERED: METHADONE HCL 40 MG DISPERSABLE TABLET ONE (06:35)
[2018-03-02] MEDS ORDERED: METHADONE HCL 5 MG TABLET ONE (06:35)
[2018-03-02] MEDS: METHADONE 40 MG, METHADONE 5 MG PO SCH (06:36)
[2018-03-02] MEDS: PRENATAL VITAMINS W/ FOLIC ACID TABLET (FP) PO SCH (10:31)
[2018-03-02] MEDS: IBUPROFEN 400 MG TABLET (FP) PO PRN ×2 (10:32→21:25)
[2018-03-02] MEDS: traZODone HCL 100 MG TABLET (FP) PO SCH (21:24)
[2018-03-02] MEDS: THIAMINE HCL 100 MG TABLET (FP) PO SCH (21:24)
[2018-03-02] MEDS: MELATONIN 5 MG TABLETS PO PRN (21:25)
[2018-03-03] MEDS ORDERED: METHADONE HCL 40 MG DISPERSABLE TABLET ONE (05:06)
[2018-03-03] MEDS ORDERED: METHADONE HCL 5 MG TABLET ONE (05:06)
[2018-03-03] MEDS: METHADONE 40 MG, METHADONE 5 MG PO SCH (06:18)
[2018-03-03] MEDS: NAPHAZOLINE/PHENIRAMINE OPHTHALMIC 15 ML BOTTLE OU SCH ×3 (06:19→21:32)
[2018-03-03] MEDS: PRENATAL VITAMINS W/ FOLIC ACID TABLET (FP) PO SCH (09:43)
[2018-03-03] MEDS: IBUPROFEN 400 MG TABLET (FP) PO PRN ×2 (09:43→21:30)
[2018-03-03] MEDS: THIAMINE HCL 100 MG TABLET (FP) PO SCH (21:29)
[2018-03-03] MEDS: traZODone HCL 100 MG TABLET (FP) PO SCH (21:29)
[2018-03-03] MEDS: MELATONIN 5 MG TABLETS PO PRN (21:31)
[2018-03-04] MEDS ORDERED: METHADONE HCL 5 MG TABLET ONE (02:28)
[2018-03-04] MEDS ORDERED: METHADONE HCL 40 MG DISPERSABLE TABLET ONE (02:28)
[2018-03-04] MEDS: METHADONE 40 MG, METHADONE 5 MG PO SCH (06:14)
[2018-03-04] MEDS: NAPHAZOLINE/PHENIRAMINE OPHTHALMIC 15 ML BOTTLE OU SCH ×3 (06:15→21:29)
[2018-03-04] MEDS: IBUPROFEN 400 MG TABLET (FP) PO PRN ×2 (09:49→21:28)
[2018-03-04] MEDS: PRENATAL VITAMINS W/ FOLIC ACID TABLET (FP) PO SCH (09:49)
[2018-03-04] MEDS: traZODone HCL 100 MG TABLET (FP) PO SCH (21:26)
[2018-03-04] MEDS: MELATONIN 5 MG TABLETS PO PRN (21:26)
[2018-03-04] MEDS: THIAMINE HCL 100 MG TABLET (FP) PO SCH (21:26)
[2018-03-05] MEDS ORDERED: METHADONE HCL 5 MG TABLET ONE (04:02)
[2018-03-05] MEDS ORDERED: METHADONE HCL 40 MG DISPERSABLE TABLET ONE (04:03)
[2018-03-05] MEDS: NAPHAZOLINE/PHENIRAMINE OPHTHALMIC 15 ML BOTTLE OU SCH (06:20)
[2018-03-05] MEDS: METHADONE 40 MG, METHADONE 5 MG PO SCH (06:20)
[2018-03-05] MEDS: PRENATAL VITAMINS W/ FOLIC ACID TABLET (FP) PO SCH (10:25)
[2018-03-05] MEDS: THIAMINE HCL 100 MG TABLET (FP) PO SCH (21:28)
[2018-03-05] MEDS: traZODone HCL 100 MG TABLET (FP) PO SCH (21:28)
[2018-03-05] MEDS: MELATONIN 5 MG TABLETS PO PRN (21:28)
[2018-03-05] MEDS: IBUPROFEN 400 MG TABLET (FP) PO PRN (21:29)
[2018-03-06] MEDS ORDERED: METHADONE HCL 5 MG TABLET ONE (04:14)
[2018-03-06] MEDS ORDERED: METHADONE HCL 40 MG DISPERSABLE TABLET ONE (04:14)
[2018-03-06] MEDS: METHADONE 40 MG, METHADONE 5 MG PO SCH (06:18)
[2018-03-06] MEDS: PRENATAL VITAMINS W/ FOLIC ACID TABLET (FP) PO SCH (10:37)
[2018-03-06] MEDS: traZODone HCL 100 MG TABLET (FP) PO SCH (21:27)
[2018-03-06] MEDS: MELATONIN 5 MG TABLETS PO PRN (21:27)
[2018-03-06] MEDS: THIAMINE HCL 100 MG TABLET (FP) PO SCH (21:27)
[2018-03-06] MEDS: IBUPROFEN 400 MG TABLET (FP) PO PRN (21:28)
[2018-03-07] MEDS ORDERED: METHADONE HCL 5 MG TABLET ONE (04:01)
[2018-03-07] MEDS ORDERED: METHADONE HCL 40 MG DISPERSABLE TABLET ONE (04:01)
[2018-03-07] MEDS: METHADONE 40 MG, METHADONE 5 MG PO SCH (06:24)
[2018-03-07] MEDS: PRENATAL VITAMINS W/ FOLIC ACID TABLET (FP) PO SCH (10:33)
[2018-03-07] MEDS: THIAMINE HCL 100 MG TABLET (FP) PO SCH (21:24)
[2018-03-07] MEDS: MELATONIN 5 MG TABLETS PO PRN (21:24)
[2018-03-07] MEDS: traZODone HCL 100 MG TABLET (FP) PO SCH (21:24)
[2018-03-07] MEDS: IBUPROFEN 400 MG TABLET (FP) PO PRN (21:25)
[2018-03-07] MEDS: NAPHAZOLINE/PHENIRAMINE OPHTHALMIC 15 ML BOTTLE OU PRN (21:26)
[2018-03-08] MEDS ORDERED: METHADONE HCL 5 MG TABLET ONE (04:07)
[2018-03-08] MEDS ORDERED: METHADONE HCL 40 MG DISPERSABLE TABLET ONE (04:07)
[2018-03-08] MEDS: METHADONE 40 MG, METHADONE 5 MG PO SCH (06:28)
[2018-03-08] MEDS: NAPHAZOLINE/PHENIRAMINE OPHTHALMIC 15 ML BOTTLE OU PRN ×2 (06:30→21:27)
[2018-03-08] MEDS: PRENATAL VITAMINS W/ FOLIC ACID TABLET (FP) PO SCH (10:24)
[2018-03-08] MEDS: MELATONIN 5 MG TABLETS PO PRN (21:27)
[2018-03-08] MEDS: THIAMINE HCL 100 MG TABLET (FP) PO SCH (21:27)
[2018-03-08] MEDS: traZODone HCL 100 MG TABLET (FP) PO SCH (21:27)
[2018-03-08] MEDS: IBUPROFEN 400 MG TABLET (FP) PO PRN (21:28)
[2018-03-09] MEDS ORDERED: METHADONE HCL 40 MG DISPERSABLE TABLET ONE (05:18)
[2018-03-09] MEDS ORDERED: METHADONE HCL 5 MG TABLET ONE (05:18)
[2018-03-09] MEDS: METHADONE 40 MG, METHADONE 5 MG PO SCH (06:19)
[2018-03-09] MEDS: NAPHAZOLINE/PHENIRAMINE OPHTHALMIC 15 ML BOTTLE OU PRN (06:21)
[2018-03-09] MEDS: PRENATAL VITAMINS W/ FOLIC ACID TABLET (FP) PO SCH (10:07)
[2018-03-09] MEDS: IBUPROFEN 400 MG TABLET (FP) PO PRN ×2 (10:08→21:24)
[2018-03-09] MEDS: traZODone HCL 100 MG TABLET (FP) PO SCH (21:22)
[2018-03-09] MEDS: THIAMINE HCL 100 MG TABLET (FP) PO SCH (21:22)
[2018-03-09] MEDS: MELATONIN 5 MG TABLETS PO PRN (21:24)
[2018-03-10] MEDS ORDERED: METHADONE HCL 5 MG TABLET ONE (05:01)
[2018-03-10] MEDS ORDERED: METHADONE HCL 40 MG DISPERSABLE TABLET ONE (05:01)
[2018-03-10] MEDS: METHADONE 40 MG, METHADONE 5 MG PO SCH (06:21)
[2018-03-10] MEDS: IBUPROFEN 400 MG TABLET (FP) PO PRN ×2 (06:23→21:26)
[2018-03-10] MEDS: NAPHAZOLINE/PHENIRAMINE OPHTHALMIC 15 ML BOTTLE OU PRN (06:24)
[2018-03-10] MEDS: PRENATAL VITAMINS W/ FOLIC ACID TABLET (FP) PO SCH (10:07)
[2018-03-10] MEDS: traZODone HCL 100 MG TABLET (FP) PO SCH (21:25)
[2018-03-10] MEDS: THIAMINE HCL 100 MG TABLET (FP) PO SCH (21:26)
[2018-03-10] MEDS: MELATONIN 5 MG TABLETS PO PRN (21:26)
[2018-03-11] MEDS ORDERED: METHADONE HCL 5 MG TABLET ONE (03:15)
[2018-03-11] MEDS ORDERED: METHADONE HCL 40 MG DISPERSABLE TABLET ONE (03:15)
[2018-03-11] MEDS: METHADONE 40 MG, METHADONE 5 MG PO SCH (07:32)
[2018-03-11] MEDS: NAPHAZOLINE/PHENIRAMINE OPHTHALMIC 15 ML BOTTLE OU PRN ×2 (07:32→21:24)
[2018-03-11] MEDS: PRENATAL VITAMINS W/ FOLIC ACID TABLET (FP) PO SCH (09:47)
[2018-03-11] MEDS: traZODone HCL 100 MG TABLET (FP) PO SCH (21:22)
[2018-03-11] MEDS: THIAMINE HCL 100 MG TABLET (FP) PO SCH (21:22)
[2018-03-11] MEDS: MELATONIN 5 MG TABLETS PO PRN (21:22)
[2018-03-11] MEDS: IBUPROFEN 400 MG TABLET (FP) PO PRN (21:23)
[2018-03-12] MEDS ORDERED: METHADONE HCL 40 MG DISPERSABLE TABLET ONE (02:32)
[2018-03-12] MEDS ORDERED: METHADONE HCL 5 MG TABLET ONE (02:32)
[2018-03-12] MEDS: METHADONE 40 MG, METHADONE 5 MG PO SCH (06:29)
[2018-03-12] MEDS: PRENATAL VITAMINS W/ FOLIC ACID TABLET (FP) PO SCH (10:24)
[2018-03-12] MEDS: THIAMINE HCL 100 MG TABLET (FP) PO SCH (21:30)
[2018-03-12] MEDS: cloNIDine HCL 0.1 MG TABLET PO SCH (21:30)
[2018-03-12] MEDS: traZODone HCL 100 MG TABLET (FP) PO SCH (21:30)
[2018-03-12] MEDS: MELATONIN 5 MG TABLETS PO PRN (21:30)
[2018-03-12] MEDS: IBUPROFEN 400 MG TABLET (FP) PO PRN (21:31)
[2018-03-12] MEDS: NAPHAZOLINE/PHENIRAMINE OPHTHALMIC 15 ML BOTTLE OU PRN (21:33)
[2018-03-12] MEDS ORDERED: cloNIDine HCL 0.1 MG TABLET PO SCH (22:00)
[2018-03-13] MEDS ORDERED: METHADONE HCL 40 MG DISPERSABLE TABLET ONE (04:09)
[2018-03-13] MEDS ORDERED: METHADONE HCL 5 MG TABLET ONE (04:09)
[2018-03-13] MEDS: NAPHAZOLINE/PHENIRAMINE OPHTHALMIC 15 ML BOTTLE OU PRN (06:21)
[2018-03-13] MEDS: METHADONE 40 MG, METHADONE 5 MG PO SCH (06:21)
[2018-03-13 06:59] VITALS: BP 147/85; PULSE 76; TEMP 97.7
--- NOTE | 2018-03-13 09:52 | PN ---
Psychiatric Progress Note Vital Signs: Vital Signs Period Temp Pulse Resp BP Sys/Corley Pulse Ox Last 24 Hr 97.7 F 76-83 -18 147-158/85-93 Date of Session: 03/13/18 Chief Complaint:: Discharge Note HPI: Patient addressing Alcohol Dependence comorbid with Opioid dependence on Agonist Therapy and Alcohol-Induced Slep Disorder ROS: HTN, Hep C were medically managed Current Medications: Active Medications Generic Name Dose Route Start Last Admin Trade Name Freq PRN Reason Stop Dose Admin Acetaminophen 650 mg 02/22/18 21:13 02/23/18 14:45 Tylenol - PO 650 mg Q4H PRN Administration FEVER Al Hydroxide/Mg Hydroxide 30 ml 02/22/18 21:13 02/24/18 14:25 Mylanta Oral Suspension - PO 30 ml Q6H PRN Administration DYSPEPSIA Clonidine 0.1 mg 03/12/18 22:00 03/12/18 21:30 Catapres - PO 0.1 mg BID CARTER Administration Eucalyptus/Menthol/Phenol/Sorbitol 1 each 02/22/18 21:13 Cepastat Lozenge - MM Q4H PRN SORE THROAT Guaifenesin 10 ml 02/22/18 21:13 Robitussin Dm - PO Q6H PRN COUGH Ibuprofen 400 mg 02/22/18 21:13 03/12/18 21:31 Motrin - PO 400 mg Q6H PRN Administration Pain Level 4-6 Loperamide HCl 4 mg 02/22/18 21:13 Imodium - PO Q6H PRN DIARRHEA Magnesium Citrate 300 ml 02/22/18 21:13 Citroma - PO Q48H PRN CONSTIPATION Magnesium Hydroxide 30 ml 02/22/18 21:13 02/24/18 21:23 Milk Of Magnesia - PO 30 ml DAILY PRN Administration CONSTIPATION Melatonin 5 mg 02/22/18 22:00 03/12/18 21:30 Melatonin PO 5 mg HS PRN Administration INSOMNIA Methadone HCl 40 mg/ Methadone 45 mg 03/08/18 06:00 03/13/18 06:21 HCl 5 mg PO 03/15/18 05:59 45 mg DAILY@0600 CARTER Administration Naphazoline HCl/Pheniramine Maleate 1 drop 03/07/18 09:56 03/13/18 06:21 Visine-A - OU 1 drop QID PRN Administration FOR ITCHING Multivit/Folic Acid/Iron 1 tab 02/23/18 10:00 03/12/18 10:24 Vitamins (Sjr) - PO 1 tab DAILY CARTER Administration Pseudoephedrine/Triprolidine 1 combo 02/22/18 21:13 Actifed - PO TID PRN NASAL CONGESTION Thiamine HCl 100 mg 02/22/18 22:00 03/12/18 21:30 Vitamin B1 - PO 100 mg HS CARTER Administration Trazodone HCl 100 mg 02/26/18 22:00 03/12/18 21:30 Desyrel - PO 100 mg HS CARTER Administration Current Side Effect: No Lab tests ordered: Yes Lab tests reviewed: Yes Provider note:: Patient has completed this program today. He has met his treatment goals and will continue to address his issues in outpatient treatment at [facility] at [address] [place] [id number]. Told pranav that his participation in this program gave him for reflexion. He responded well to Trazadone 100 mg po HS. Script for 30 days suply of that medication is electronically transmitted to [facility] at [address] [place] [address]. He is stable for discharge today Total face to face time:: 35 Mental Status Exam - Mental Status Exam Alert and Oriented to: Time, Place, Person Cognitive Function: Fair Patient Appearance: Well Groomed Mood: Hopeful, Euthymic Affect: Appropriate Patient Behavior: Cooperative Speech Pattern: Clear Voice Loudness: Normal Thought Process: Intact Thought Disorder: Not Present Hallucinations: Denies Suicidal Ideation: Denies Homicidal Ideation: Denies Insight/Judgement: Fair Sleep: Fair Appetite: Good Muscle strength/Tone: Normal Gait/Station: Normal Psychiatric Treatment Plan - Problem List (1) Alcohol dependence Current Visit: Yes (2) Opioid dependence on agonist therapy Current Visit: No (3) Alcohol-induced sleep disorder Current Visit: Yes (4) Hx of hepatitis C Current Visit: No (5) HTN (hypertension) Current Visit: Yes Initial treatment plan: Patient is discharged today and referred to [facility] for outpatient treatment
[2018-03-13] MEDS: PRENATAL VITAMINS W/ FOLIC ACID TABLET (FP) PO SCH (10:26)
[2018-03-13] MEDS: cloNIDine HCL 0.1 MG TABLET PO SCH (10:26)
== END 2018-03-13 11:05 | disposition home or self-care (01) | DRG 895 ==
LOC: YASAS 17:39 → Y5N 17:40 → Y6N 17:47 → Y5N 17:49
PROVIDERS: ADMIT Psychiatry & Neurology Psychiatry; ATTEND Psychiatry & Neurology Psychiatry
PROC: HZ42ZZZ Group Counseling for Substance Abuse Treatment, Cognitive-Behavioral (ICD-10-PCS; principal; 2018-02-22)
DX: F10.282 Alcohol dependence with alcohol-induced sleep disorder (principal); F11.20 Opioid dependence, uncomplicated; I10 Essential (primary) hypertension; B18.2 Chronic viral hepatitis C
CPT/HCPCS: J0735